=== PATIENT | female | born 1990 | race Two or more races ===

== ENCOUNTER 2018-12-04 21:43 | Emergency (ER) | payer MEDICAID ==
[~2018-12-04] VITALS: Ht 162.6 cm; Wt 63.5 kg
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
--- NOTE | 2018-12-04 22:10 | NUR ---
ED Nurse Note: Pain meds given as ordered.
[2018-12-04] MEDS ORDERED: HYDROcodone/Acetamin 5/325 tab ORAL ONE (22:15)
[2018-12-04] MEDS ORDERED: Tetanus/Diptheria/Pertussis Vaccine 0.5ml Syr IM ONE (22:15)
--- NOTE | 2018-12-04 22:16 | NUR ---
ED Nurse Note: X-ray done at bed side.
[2018-12-05] MEDS ORDERED: Bacitracin Oint 15gm Tube TOPIC ONE (03:03)
[2018-12-05] MEDS ORDERED: cefTRIAXone 1 GM in NS 55 ML IVPB ONE (03:30)
[2018-12-05] MEDS ORDERED: Bacitracin Oint UD TOPIC ONE (03:30)
[2018-12-05] MEDS ORDERED: IBUPROFEN600 MG ORAL (03:44)
[2018-12-05] MEDS ORDERED: HYDROCODON-ACE1 EA15 ORAL (03:44)
[2018-12-05] MEDS ORDERED: CEPHALEXIN500 MG ORAL (03:44)
[2018-12-05 04:20] VITALS: BP 121/84
--- NOTE | 2018-12-05 04:20 | NUR ---
ER DISCHARGE NOTE: Patient is cleared to be discharged per Dr. Luis. X-ray done, no fractrue were found at this time, suturing done by and dressing applied to right Knee and left knee and left forearm. Splint applied to right knee. Crutches provided. Antibiotics and Tetanus given. Pt is A/O x4 on room air with stable vital signs. Pt was given D/C and prescription instructions, Pt was able to verbalize understanding, pt IV and ID band removed. pt is able to ambulate with Crutches and pt took all belongings. Accompanied by her Mom.
--- NOTE | 2018-12-05 10:42 | Diagnostic Imaging Report ---
Indication: Trauma Technique: 3 views of the left knee Comparison: None Findings: Numerous foreign bodies are seen in the anterior soft tissues at and below the level of the knee joint. There is evidence of soft tissue disruption. No acute fractures. No dislocations. No acute bony disruption. Impression: Numerous radiopaque foreign bodies demonstrated. Evidence of soft tissue laceration No acute bony trauma This agrees with the conclusions reported by the emergency room physician in the electronic medical record
--- NOTE | 2018-12-05 10:46 | Diagnostic Imaging Report ---
Indication: Left knee pain, trauma Technique: 3 views of the left knee Comparison: None Findings: Single linear foreign body projects superficially over the anterior tibia on the lateral view. No other radiopaque foreign body demonstrated. There is evidence of some soft tissue disruption anteriorly. No acute fractures. No dislocations. No bony disruption Impression: Positive for single superficial foreign body. Findings discussed by phone with Dr. Martinez in the emergency room at the time of interpretation No acute bony trauma
== END 2018-12-05 04:20 | disposition home or self-care (01) ==
LOC: EDBD 21:43 → EDSEX 21:43 → EMR 21:59
DX: S81.812A Laceration without foreign body, left lower leg, initial encounter (principal); S81.811A Laceration without foreign body, right lower leg, initial encounter; W52.XXXA Crushed, pushed or stepped on by crowd or human stampede, initial encounter; Y92.9 Unspecified place or not applicable; Z23 Encounter for immunization
CPT/HCPCS: 12002; 12035; 73562; 90471; 90715; 96365; 96375; 99284; J0696; J2405; Z7502